=== PATIENT | male | born 1965 | race Hispanic/Latino ===

== ENCOUNTER → 2017-10-14 | Outpatient (CLI) | payer SELFPAY ==
--- NOTE | 2017-10-14 12:03 | Diagnostic Imaging Report ---
EXAM: Scrotal Ultrasound with Duplex INDICATION: \S\TESTICULAR PAIN COMPARISON: None TECHNIQUE: Transverse and longitudinal images were obtained of the scrotum with grayscale imaging, color Doppler and spectral waveform analysis. FINDINGS: Right testis: Size: 4.1 x 1.7 x 3 cm, normal in size. Echogenicity: Normal Mass/Cysts: None Left testis: Size: 4.1 x 1.8 x 2.8 cm, normal in size. Echogenicity: Normal Mass/Cysts: None Epididymis: Appearance: Normal in size without increased vascularity. Mass/Cysts: 2.1 x 1.1 x 1.8 cm right epididymal head cyst/spermatocele. Extratesticular: Masses: None. 0.5 x 0.2 x 0.3 cm left tunica vaginalis cyst. Hydrocele: None Varicocele: None Doppler: Normal arterial flow to both testes and symmetrical flow on color Doppler evaluation is seen. No evidence of testicular torsion. No evidence of inguinal hernia. IMPRESSION: 1. No evidence of testicular torsion. 2. 2.1 cm right epididymal head cyst/spermatocele. Signed by: Dr. Ron Wei MD on 10/14/2017 11:59 AM
== END ==
LOC: RAD 09:26
PROVIDERS: ATTEND Internal Medicine
DX: N50.9 Disorder of male genital organs, unspecified (principal)
CPT/HCPCS: 76870; 93976